=== PATIENT | male | born 1950 | race Caucasian/White ===

== ENCOUNTER 2019-01-10 12:25 | Emergency (ER) | payer MEDICARE ==
[~2019-01-10] VITALS: Ht 185.4 cm; Wt 102.1 kg
[2019-01-10] MEDS ORDERED: IV NORMAL SALINE 1,000ML 1,000 ML IV ONE ×2 (12:45→13:45)
[2019-01-10 12:57] LABS: BASO % 0 % (0-3); EOS % 0 % (0-3); HEMOGLOBIN 13.8 g/dL (13.0-17.5); LYMPH # 1.1 x10^3/uL (1.0-4.8); LYMPH % 14 % (24-48); MEAN CORPUSCULAR HEMOGLOBIN 41 pg (25-35); MEAN CORPUSCULAR HGB CONC 36 g/dL (31-37); MEAN CORPUSCULAR VOLUME 112 fL (79-100); MONO # 0.7 x10^3/uL (0.0-1.1); MONO % 9 % (0-9); NEUT % 76 % (31-73); PLATELET COUNT 122 x10^3/uL (140-400); RED BLOOD COUNT 3.39 x10^6/uL (4.30-5.70); WHITE BLOOD COUNT 7.9 x10^3/uL (4.0-11.0)
--- NOTE | 2019-01-10 12:57 | RAD ---
Single view of the chest. 01/10/2019 12:34 PM Indication: Syncope Comparison: None Findings: Lung volumes mildly low. Mild cardiomegaly.No pneumothorax or pleural effusion is seen. No definitive focal infiltrate is seen. Prior median sternotomy noted. No acute osseous changes are seen. IMPRESSION: No radiographic evidence of acute cardiopulmonary process Electronically signed by: Lázaro Paula MD (01/10/2019 12:54 PM) [facility]
--- NOTE | 2019-01-10 13:04 | PHYS DOC ---
Past History Past Medical History: Asthma, CAD, Diabetes, High Cholesterol, Hypertension, TIA, Other Past Surgical History: Coronary Bypass Surgery, Other Additional Smoking Information: CIGARS Alcohol Use: None Drug Use: None Adult General Chief Complaint Chief Complaint: SYNCOPE HPI HPI 68-year-old male presents after syncopal episode. The patient was not feeling very well this morning. He felt more fatigued than usual. He went to look at a building for a friend and found himself staggering a little bit in the halls. He thought maybe he had low blood sugar. He is not diabetic. He decided to go to when these get some food. Follow he was in the line when he became very tired and started to fall down. Other patrons helped into a chair. While he was sitting in his chair, he says that he passed out completely. He was unconscious for several minutes, because he was not awake when EMS arrived. He continues to feel generally fatigued and tired. He denies any shortness of breath, chest pain, or musculoskeletal pain. Has had a few episodes of decreased balance over the last several weeks. He is in the process of getting an MRI and what sounds and echocardiogram scheduled through his neurologist and PCP. He has not had these done yet. He has not had recent CT of the head. He denies headache or visual changes. He denies fever or chills. No, nausea, vomiting, diarrhea, or constipation. Review of Systems Review of Systems Constitutional: Denies fever or chills. General weakness [] Eyes: Denies change in visual acuity, redness, or eye pain [] HENT: Denies nasal congestion or sore throat [] Respiratory: Denies cough or shortness of breath [] Cardiovascular: No additional information not addressed in HPI [] GI: Denies abdominal pain, nausea, vomiting, bloody stools or diarrhea [] : Denies dysuria or hematuria [] Musculoskeletal: Denies back pain or joint pain [] Integument: Denies rash or skin lesions [] Neurologic: Syncope. Denies headache, focal weakness or sensory changes [] Endocrine: Denies polyuria or polydipsia [] All other systems were reviewed and found to be within normal limits, except as documented in this note. Current Medications Current Medications Current Medications Medications (Trade) Dose Ordered Sig/Jolie Start Time Stop Time Status Last Admin Dose Admin Sodium Chloride 1,000 ml @ 1,000 mls/hr 1X ONCE 01/10/19 12:45 01/10/19 13:44 01/10/19 12:44 1,000 MLS/HR Allergies Allergies Allergies Coded Allergies Type Severity Reaction Last Updated Verified metoprolol Allergy Unknown 01/10/19 Yes Physical Exam Physical Exam Constitutional: Well developed, well nourished, no acute distress, non-toxic appearance. [] HENT: Normocephalic, atraumatic, bilateral external ears normal, oropharynx moist, no oral exudates, nose normal. [] Eyes: PERRLA, EOMI, conjunctiva normal, no discharge. [] Neck: Normal range of motion, no tenderness, supple, no stridor. [] Cardiovascular:Heart rate regular rhythm, no murmur [] Lungs & Thorax: Bilateral breath sounds clear to auscultation [] Abdomen: Bowel sounds normal, soft, no tenderness, no masses, no pulsatile masses. [] Skin: Warm, dry, no erythema, no rash. [] Back: No tenderness, no CVA tenderness. [] Extremities: No tenderness, no cyanosis, no clubbing, ROM intact, no edema. [] Neurologic: Tired. Alert and oriented X 3, normal motor function, normal sensory function, no focal deficits noted. [] Psychologic: Affect normal, judgement normal, mood normal. [] Current Patient Data Vital Signs Vital Signs Date Time Temp Pulse Resp B/P (MAP) Pulse Ox O2 Delivery O2 Flow Rate FiO2 01/10/19 12:41 97.4 69 17 93 Room Air Lab Results Laboratory Tests Test 01/10/19 12:39 White Blood Count 7.9 x10^3/uL (4.0-11.0) Red Blood Count 3.39 x10^6/uL (4.30-5.70) L Hemoglobin 13.8 g/dL (13.0-17.5) Hematocrit 38.0 % (39.0-53.0) L Mean Corpuscular Volume 112 fL (79-100) H Mean Corpuscular Hemoglobin 41 pg (25-35) H Mean Corpuscular Hemoglobin Concent 36 g/dL (31-37) Red Cell Distribution Width 14.0 % (11.5-14.5) Platelet Count 122 x10^3/uL (140-400) L Neutrophils (%) (Auto) 76 % (31-73) H Lymphocytes (%) (Auto) 14 % (24-48) L Monocytes (%) (Auto) 9 % (0-9) Eosinophils (%) (Auto) 0 % (0-3) Basophils (%) (Auto) 0 % (0-3) Neutrophils # (Auto) 6.0 x10^3uL (1.8-7.7) Lymphocytes # (Auto) 1.1 x10^3/uL (1.0-4.8) Monocytes # (Auto) 0.7 x10^3/uL (0.0-1.1) Eosinophils # (Auto) 0.0 x10^3/uL (0.0-0.7) Basophils # (Auto) 0.0 x10^3/uL (0.0-0.2) Platelet Estimate Pending EKG EKG Sinus rhythm, rate 68, normal axis, no ST elevations or depressions.[] Radiology/Procedures Radiology/Procedures [] Impressions: CT HEAD WITHOUT CONTRAST 01/10/2019 12:54 PM Indication: Syncope Comparison: None available Procedure: Multidetector CT imaging of the head was performed without the administration of contrast. Findings: There is no evidence of acute intracranial hemorrhage. There is no evidence of acute territorial infarction. Please note that CT is limited for evaluation of acute ischemia. No mass effect or midline shift is identified . The ventricles and basilar cisterns have an appropriate appearance. No abnormal extra-axial fluid collections are seen. No acute osseous changes are identified. Impression: No evidence of acute intracranial abnormality CT DOSING PQRS STATEMENT: One or more of the following individualized dose reduction techniques were utilized for this examination: 1. Automated exposure control 2. Adjustment of the mA and/or kV according to patient size 3. Use of iterative reconstruction technique Electronically signed by: Lázaro Chaney MD (01/10/2019 1:23 PM) [facility] DICTATED AND SIGNED BY: LÁZARO CHANEY MD DATE: 01/10/19 1323 CC: TIFFANY HI DO; PCP,NO ~ Single view of the chest. 01/10/2019 12:34 PM Indication: Syncope Comparison: None Findings: Lung volumes mildly low. Mild cardiomegaly.No pneumothorax or pleural effusion is seen. No definitive focal infiltrate is seen. Prior median sternotomy noted. No acute osseous changes are seen. IMPRESSION: No radiographic evidence of acute cardiopulmonary process Electronically signed by: Lázaro Chaney MD (01/10/2019 12:54 PM) [facility] DICTATED AND SIGNED BY: LÁZARO CHANEY MD DATE: 01/10/19 1254 CC: TIFFANY HI DO; PCP,NO ~ Course & Med Decision Making Course & Med Decision Making Pertinent Labs and Imaging studies reviewed. (See chart for details) The patient has had low blood pressure here in the emergency room. We have given him 1 L normal saline. His pressure is improving some. His labs are significant for creatinine 1.9. I have no previous for comparison. His head CT is here for acute findings. His chest x-rays negative for acute findings. We will give him a second liter of normal saline. His EKG is unremarkable. His troponin is negative. The patient required 2 L of normal saline before he was able to urinate. I suspect he is significantly dehydrated. He rested in the ED and is now feeling much better. His blood pressure has improved. We walked him around the ED and he had no difficulty. His urinalysis is negative for infection. I have told the patient will be important for him to repeat his serum creatinine tomorrow or the next day at the latest. He will talk to his primary care physician about ordering this lab. He is stable for discharge at this time. [] Dragon Disclaimer Dragon Disclaimer This electronic medical record was generated, in whole or in part, using a voice recognition dictation system. Departure Departure: Impression: Primary Impression: Syncope and collapse Additional Impressions: Dehydration Elevated serum creatinine Disposition: HOME, SELF-CARE Condition: IMPROVED Referrals: PCP,NO (PCP) Patient Instructions: Dehydration, Adult, [id number], Syncope, [id number] Problem Qualifiers TIFFANY HI DO Jan 10, 2019 13:04
[2019-01-10 13:06] LABS: ALBUMIN 3.5 g/dL (3.4-5.0); ALBUMIN/GLOBULIN RATIO 0.9 (1.0-1.7); CALCIUM 9.7 mg/dL (8.5-10.1); CREATININE 1.9 mg/dL (0.7-1.3); GFR 35.2; POTASSIUM 4.1 mmol/L (3.5-5.1); TOTAL BILIRUBIN 0.9 mg/dL (0.2-1.0); TOTAL PROTEIN 7.2 g/dL (6.4-8.2)
--- NOTE | 2019-01-10 13:26 | RAD ---
CT HEAD WITHOUT CONTRAST 01/10/2019 12:54 PM Indication: Syncope Comparison: None available Procedure: Multidetector CT imaging of the head was performed without the administration of contrast. Findings: There is no evidence of acute intracranial hemorrhage. There is no evidence of acute territorial infarction. Please note that CT is limited for evaluation of acute ischemia. No mass effect or midline shift is identified . The ventricles and basilar cisterns have an appropriate appearance. No abnormal extra-axial fluid collections are seen. No acute osseous changes are identified. Impression: No evidence of acute intracranial abnormality CT DOSING PQRS STATEMENT: One or more of the following individualized dose reduction techniques were utilized for this examination: 1. Automated exposure control 2. Adjustment of the mA and/or kV according to patient size 3. Use of iterative reconstruction technique Electronically signed by: Lázaro Paula MD (01/10/2019 1:23 PM) [facility]
[2019-01-10 13:36] LABS: PLT ESTIMATE ADEQUATE (ADEQUATE); POLYCHROMASIA SLIGHT
[2019-01-10 15:45] VITALS: BP 117/66
[2019-01-10 15:48] LABS: BILIRUBIN,URINE NEG (NEG); CLARITY,URINE CLEAR; COLOR,URINE YELLOW; GLUCOSE,URINE NEG (NEG)
[2019-01-10 15:49] LABS: BACTERIA,URINE FEW /HPF (0-FEW); HYALINE CASTS, URINE OCC /HPF; NITRITE,URINE NEG (NEG); RBC,URINE 0 /HPF (0-2); SQUAMOUS EPITHELIAL CELL,UR OCC /LPF; UROBILINOGEN,URINE 0.2 mg/dL (0.2 mg/dL)
--- NOTE | 2019-01-10 16:15 | EKG ---
[address] [address] Test Date: 2019-01-10 Test Time: 12:39:35 Pat Name: DANIELLE OG Department: Room: Gender: M [employer] Physician: HANNAH : 1950 Requested By: TIFFANY HI Order Number: [id number] Reading MD: Measurements Intervals [place] Rate: 68 P: 29 [place]: 144 QRS: 27 QRSD: 88 T: 66 QT: 434 QTc: 467 Interpretive Statements SINUS RHYTHM NO SPECIFIC ECG ABNORMALITIES RI6.01 No previous ECG available for comparison
== END 2019-01-10 15:58 | disposition home or self-care (01) ==
LOC: ER 12:25
DX: R55 Syncope and collapse (principal); E86.0 Dehydration; R74.8 Abnormal levels of other serum enzymes; J45.909 Unspecified asthma, uncomplicated; E78.00 Pure hypercholesterolemia, unspecified; I10 Essential (primary) hypertension; F17.210 Nicotine dependence, cigarettes, uncomplicated; Z86.73 Personal history of transient ischemic attack (TIA), and cerebral infarction without residual deficits; Z88.8 Allergy status to other drugs, medicaments and biological substances
CPT/HCPCS: 36415; 70450; 71045; 80053; 81001; 84484; 85025; 93005; 96360; 96361; 99285-25; J7030